=== PATIENT | female | born 1995 | race African-American/Black ===

== ENCOUNTER 2019-12-11 23:41 | Emergency (ER) | payer MEDICAID ==
[~2019-12-11] VITALS: Ht 170.2 cm; Wt 132.1 kg
[2019-12-12] MEDS ORDERED: HYDROCODONE/ACETAMINOPHEN 5/325MG TABLET PO ONE (00:15)
[2019-12-12 01:03] LABS: CHLORIDE 104 mEq/L (98-107)
[2019-12-12 01:34] LABS: EOSINOPHILS % 1.2 % (0.0-5.0); HEMATOCRIT. 36.4 % (36.0-48.0); HEMOGLOBIN. 12.1 g/dL (12.0-16.0); LYMPHOCYTES % 28.5 % (20.0-50.0); MEAN CORPUSCULAR HEMOGLOBIN 28.3 pg (28.0-32.0); MEAN PLATELET VOLUME 8.7 fl (7.4-10.4); NEUTROPHILS % 62.3 % (40.0-76.0); PLATELET 302 x1000/uL (130-400); RED BLOOD CELL COUNT 4.29 mill/uL (4.2-5.4); RED CELL DISTRIBUTION WIDTH 12.8 % (11.6-14.6)
[2019-12-12 01:58] LABS: PROTHROMBIN TIME 10.7 sec (9.6-11.0)
[2019-12-12 03:30] VITALS: BP 129/84
== END 2019-12-12 04:30 | disposition home or self-care (01) ==
LOC: ER 23:41
DX: S83.8X2A Sprain of other specified parts of left knee, initial encounter (principal); R47.1 Dysarthria and anarthria; V49.59XA Passenger injured in collision with other motor vehicles in traffic accident, initial encounter; Y93.89 Activity, other specified; Y92.89 Other specified places as the place of occurrence of the external cause; Y99.8 Other external cause status; R55 Syncope and collapse; Z88.2 Allergy status to sulfonamides
CPT/HCPCS: 36415; 73562; 80053; 84484; 85025; 93005; 99285